=== PATIENT | female | born 1960 | race Caucasian/White ===

== ENCOUNTER 2019-02-05 06:23 | Day surgery (SDC) | payer BC ==
[~2019-02-05 06:23] MED LIST: ALPRAZOLAM0.25 MG PO; ATORVASTATIN CA10 MG PO; BIOTIN5000 MC2 PO; CALCIUM + D600 MG PO; CLONAZEPAM1 MG PO; CRANBERRY200 MG PO; DOCUSATE CAL240 MG PO; ESCITALOPRAM OX10 MG PO; FENOFIBRATE145 MG PO; FIASP FLEX100 UNIT/M SC; GABAPENTIN100 MG PO; LANTUS SOL100 UNIT/M SC; LORATADINE10 M3 PO; METFORMIN500 MG PO; MULTI VIT PO; RAMIPRIL2.5 MG PO; TRULICITY1.5 MG/0.5 SC; VENLAFAXINE HCL75 M1 PO; VITAMIN B-12500 MCG PO
[2019-02-05 08:41] VITALS: BP 121/78
== END 2019-02-05 09:02 | disposition home or self-care (01) | DRG 392 ==
LOC: ENDO 06:23 → ORM 07:30 → ENDO 09:02
PROVIDERS: ATTEND Internal Medicine Gastroenterology
PROC: 0DB48ZX Excision of Esophagogastric Junction, Via Natural or Artificial Opening Endoscopic, Diagnostic (ICD-10-PCS; principal; 2019-02-05)
PROC: 0DBN8ZX Excision of Sigmoid Colon, Via Natural or Artificial Opening Endoscopic, Diagnostic (ICD-10-PCS; 2019-02-05)
DX: K21.0 Gastro-esophageal reflux disease with esophagitis (principal); K29.50 Unspecified chronic gastritis without bleeding; K31.7 Polyp of stomach and duodenum; K44.9 Diaphragmatic hernia without obstruction or gangrene; K63.5 Polyp of colon; K64.4 Residual hemorrhoidal skin tags; K64.8 Other hemorrhoids; E11.9 Type 2 diabetes mellitus without complications; Z86.010 Personal history of colon polyps

== ENCOUNTER 2020-01-07 | Day surgery (SDC) | payer BC ==
[~2020-01-07] MED LIST changes: +AMITIZA8 MCG PO; +FAMOTIDINE20 M1 PO; +JARDIANCE10 MG; +SUCRALFATE1 GM PO
== END 2020-01-07 11:36 | disposition home or self-care (01) | DRG 392 ==
PROC: 0DB48ZX Excision of Esophagogastric Junction, Via Natural or Artificial Opening Endoscopic, Diagnostic (ICD-10-PCS; principal; 2020-01-07)
PROC: 0D758ZZ Dilation of Esophagus, Via Natural or Artificial Opening Endoscopic (ICD-10-PCS; 2020-01-07)
DX: K22.2 Esophageal obstruction (principal); K21.0 Gastro-esophageal reflux disease with esophagitis; K29.70 Gastritis, unspecified, without bleeding; K44.9 Diaphragmatic hernia without obstruction or gangrene; E11.9 Type 2 diabetes mellitus without complications; Z79.4 Long term (current) use of insulin